=== PATIENT | female | born 1975 | race Caucasian/White ===

== ENCOUNTER 2018-10-24 20:09 | Emergency (ER) | payer MEDICAID ==
[~2018-10-24] VITALS: Ht 152.4 cm; Wt 92.2 kg
[2018-10-24 20:15] VITALS: BP 153/83; PULSE 104; RESP 22; Ht 152.4 cm; Wt 92.2 kg
[2018-10-24] MEDS ORDERED: ONDANSETRON (ODT) 4 MG TAB ODT STA (20:37)
[2018-10-24] MEDS ORDERED: KETOROLAC 30 MG INJ IM STA (20:37)
[2018-10-24] MEDS ORDERED: ACETAMINOPHEN 500 MG TAB PO STA (20:42)
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
[2018-10-24] MEDS ORDERED: ACET500C5 PO (21:37)
== END 2018-10-24 22:17 | disposition home or self-care (01) ==
LOC: FTE 20:09
DX: M79.642 Pain in left hand (principal); R51 Headache
CPT/HCPCS: 73130; Z7502; Z7610